=== PATIENT | female | born 1985 | race Two or more races ===

== ENCOUNTER 2018-04-25 18:57 | Emergency (ER) | payer OTHER ==
[~2018-04-25] VITALS: Ht 162.6 cm; Wt 70.8 kg
[~2018-04-25 18:57] MED LIST: CILOXAN5 ML OP
[2018-04-25 19:30] VITALS: BP 116/76
[2018-04-25] MEDS ORDERED: Lidocaine 2% Visc 15ml soln ORAL ONE (20:00)
[2018-04-25] MEDS ORDERED: Dicyclomine HCl 10mg/5ml oral soln ORAL ONE (20:00)
[2018-04-25] MEDS ORDERED: Mylanta II UD 30ml ORAL ONE (20:00)
[2018-04-25 20:27] LABS: APPEARANCE,URINE CLEAR; BILIRUBIN, URINE NEGATIVE (NEGATIVE); GLUCOSE, URINE (UA) NEGATIVE (NEGATIVE); KETONES,URINE NEGATIVE (NEGATIVE); LEUKOCYTE ESTERASE ,URINE 1+ (NEGATIVE); NITRITE,URINE NEGATIVE (NEGATIVE); PH,URINE 6 (4.5-8.0); PROTEIN,URINE NEGATIVE (NEGATIVE); UROBILINOGEN,URINE NORMAL MG/DL (0.0-1.0)
[2018-04-25 20:29] LABS: COLOR,URINE YELLOW
--- NOTE | 2018-04-25 21:14 | Emergency Room Report ---
History of Present Illness General Chief Complaint: Abdominal Pain Source: Patient Present Illness HPI 33-year-old female presents emergency department complaining of 9 out of 10 in severity cramping and intermittent lower abdominal pain with frequent episodes of nonbloody diarrhea 2 days. Patient denies recent travel, ill contacts with similar symptoms, fevers or chills. Patient reports some nausea during episodes of abdominal pain secondary to pain intensity. Patient denies vomiting. Patient also reports migratory gas/bloating sensations. Patient denies recent antibiotic use she denies profuse watery diarrhea however she states she has had up to 10 episodes of diarrhea since yesterday. She denies abdominal tenderness. Denies CP, Palpitations, LOC, AMS, dizziness/ lightheadedness. She denies and reports she is breast feeding in addition to formula. Allergies: Uncoded Allergies: PENECILLIN (Allergy, Unknown, 07/03/16) Patient History Past Medical History: see triage record Past Surgical History: kosta Pertinent Family History: none Last Menstrual Period: 04/15/18 Now: No : 2 Para: 2 Reviewed Nursing Documentation: PMH: Agreed; PSxH: Agreed Nursing Documentation-PMH Past Medical History: No History, Except For Hx Cardiac Problems: No - GALLBLADDER REMOVAL AND TUBAL- LIGATION Review of Systems All Other Systems: negative except mentioned in HPI Physical Exam Vital Signs Date Time Temp Pulse Resp B/P (MAP) Pulse Ox O2 Delivery O2 Flow Rate FiO2 04/25/18 19:01 99.3 93 16 116/76 97 Room Air 99.3 Sp02 EP Interpretation: reviewed, normal General Appearance: no apparent distress, alert, GCS 15, non-toxic Head: normocephalic, atraumatic ENT: hearing grossly normal, normal voice, moist mucus membranes Neck: full range of motion Respiratory: lungs clear, normal breath sounds, speaking full sentences Cardiovascular #1: regular rate, rhythm Gastrointestinal: normal bowel sounds - hyperactive in all 4 quadrants, non tender, soft, no peritonitis, non-distended, no guarding Rectal: deferred Genitourinary: normal inspection, no CVA tenderness Musculoskeletal: back normal, gait/station normal, normal range of motion, non- tender Neurologic: alert, oriented x3, responsive, motor strength/tone normal, sensory intact, normal gait, speech normal, grossly normal Psychiatric: judgement/insight normal Skin: normal color, no rash, warm/dry, well hydrated Medical Decision Making PA Attestation Dr. Casillas is my supervising Physician whom patient management has been discussed with. Diagnostic Impression: Primary Impression: Diarrhea Qualified Codes: R19.7 - Diarrhea, unspecified Additional Impression: Abdominal pain Qualified Codes: R10.9 - Unspecified abdominal pain ER Course 33-year-old female presents emergency department complaining of 9 out of 10 in severity cramping and intermittent lower abdominal pain with frequent episodes of nonbloody diarrhea 2 days. Patient denies recent travel, ill contacts with similar symptoms, fevers or chills. Patient reports some nausea during episodes of abdominal pain secondary to pain intensity. Patient denies vomiting. Patient also reports migratory gas/bloating sensations. Patient denies recent antibiotic use she denies profuse watery diarrhea however she states she has had up to 10 episodes of diarrhea since yesterday. She denies abdominal tenderness. Denies CP, Palpitations, LOC, AMS, dizziness/ lightheadedness. Ddx considered but are not limited to Diverticulitis, acute appy, diarrhea,UC, PUD, GE, pancreatitis, gallstone Vital signs: are WNL, pt. is afebrile H&PE are most consistent with cramping abdominal pain and diarrhea - no evidence to suggest acute intra-abdominal pathology at this time. pt. NAD, Non- toxic in appearance. no obvious signs of dehydration. ORDERS: -Hcg: negative -UA: Most indicative of contamination: presence of equal amounts of bacteria and squamous cells, no elevation in inflammatory markers, nitrite negative. ED INTERVENTIONS: --GI Cocktail -Pt. reports her bloating/ cramping episodes have lessened. She reports feeling better after interventions. She is also comfortable returning home. - D/w pt. to continue to hold breast feeding until 24-48 hours after last dose of Bentyl. - The patient verbalizes her understanding and agreement with this proposed treatment plan. She will follow up with her primary care provider. She agrees to return to the emergency department with worsening or new symptoms. DISCHARGE: At this time pt. is stable for d/c to home. Will provide printed patient care instructions, and any necessary prescriptions. Care plan and follow up instructions have been discussed with the patient prior to discharge. Labs Test 04/25/18 20:10 Urine Color Yellow Urine Appearance Clear Urine pH 6 (4.5-8.0) Urine Specific [place] 1.015 (1.005-1.035) Urine Protein Negative (NEGATIVE) Urine Glucose (UA) Negative (NEGATIVE) Urine Ketones Negative (NEGATIVE) Urine Occult Blood 1+ (NEGATIVE) Urine Nitrite Negative (NEGATIVE) Urine Bilirubin Negative (NEGATIVE) Urine Urobilinogen Normal MG/DL (0.0-1.0) Urine Leukocyte Esterase 1+ (NEGATIVE) Urine RBC 0-2 /HPF (0 - 2) Urine WBC 0-2 /HPF (0 - 2) Urine Squamous Epithelial Cells Occasional /LPF Urine Bacteria Occasional /HPF (NONE) Urine HCG, Qualitative Negative (NEGATIVE) Last Vital Signs Date Time Temp Pulse Resp B/P (MAP) Pulse Ox O2 Delivery O2 Flow Rate FiO2 04/25/18 19:01 99.3 93 16 116/76 97 Room Air 99.3 Disposition: HOME, SELF-CARE Condition: Stable Scripts Ranitidine Hcl* (ZANTAC*) 150 Mg Tablet 150 MG ORAL TWICE A DAY for 4 Days, #8 TAB Prov: Estella Benavides 04/25/18 Dicyclomine Hcl* (DICYCLOMINE HCL*) 10 Mg Capsule 10 MG PO QID for 4 Days, #16 CAP Prov: Estella Benavides 04/25/18 Referrals: NON PHYSICIAN (PCP) Departure Forms: Return to Work Return to Work Date: Apr 29, 2018 Work Restrictions: None Return to Full Activity: Apr 29, 2018 Patient Instructions: Abdominal Pain, Adult, Diarrhea, Adult, [id number], Food Choices to Help Relieve Diarrhea, Adult Additional Instructions: Take medications as directed. *Hold Breast feeding while taking medication * May resume breast feeding after 24-48 hours of last dose of Bentyl/Dicyclomine Follow up with a Primary Care Provider in 3 days, even if your symptoms have resolved. --Please review list of primary care clinics, if you do not already have a primary care provider Return sooner to ED if new symptoms occur, or current symptoms become worse. - Please note that this Emergency Department Report was dictated using [employer] technology software, occasionally this can lead to erroneous entry secondary to interpretation by the dictation equipment. Estella Benavides Apr 25, 2018 21:14
[2018-04-25] MEDS ORDERED: ZANTAC150 MG ORAL (21:24)
[2018-04-25] MEDS ORDERED: DICYCLOMINE HCL10 MG PO (21:24)
[2018-04-25 21:30] VITALS: BP 116/76
== END 2018-04-25 21:30 | disposition home or self-care (01) ==
LOC: EMR 19:27
DX: R19.7 Diarrhea, unspecified (principal); R10.30 Lower abdominal pain, unspecified; Z88.0 Allergy status to penicillin
CPT/HCPCS: 81003; 81025; 99284